=== PATIENT | female | born 1935 | race Caucasian/White ===

== ENCOUNTER 2017-09-30 21:29 | Emergency (ER) | payer MEDICARE ==
[~2017-09-30] VITALS: Ht 162.6 cm; Wt 50.0 kg
[~2017-09-30 21:29] MED LIST: AMLO10TA2 PO; HYDR25TA6 PO; MELO7.5T31 PO
[2017-09-30 22:13] LABS: BASOPHILS # (AUTO) 0.21 x10^3/uL (0-0.1); BASOPHILS % (AUTO) 1 % (0-1); EOSINOPHILS # (AUTO) 0.08 x10^3/uL (0-0.4); EOSINOPHILS % (AUTO) 1 % (1-7); LYMPHOCYTES # (AUTO) 1.38 x10^3/uL (1-3.4); LYMPHOCYTES % (AUTO) 9 % (22-44); MD NO; MEAN CORPUSCULAR HEMOGLOBIN 32.4 pg (27.0-34.8); MEAN CORPUSCULAR HGB CONC 33.8 g/dL (32.4-35.8); MEAN CORPUSCULAR VOLUME 95.8 fL (80-100); MEAN PLATELET VOLUME 6.8 fL (7.4-10.4); MONOCYTES # (AUTO) 0.92 x10^3/uL (0.2-0.8); MONOCYTES % (AUTO) 6 % (2-9); NEUTROPHILS % (AUTO) 83 % (42-75); PLATELET COUNT 416 x10^3/uL (130-400); RED BLOOD COUNT 3.89 x10^6/uL (3.82-5.3); RED CELL DISTRIBUTION WIDTH 14.1 % (9.6-15.2)
[2017-09-30 22:26] LABS: ALANINE AMINOTRANSFERASE 10 U/L (12-78); ALBUMIN 3.4 g/dL (3.4-5.0); ANION GAP 12 mmol/L (5-15); CHLORIDE 99 mmol/L (98-107); CREATININE 0.46 mg/dL (0.55-1.02)
[2017-09-30 22:28] LABS: ALKALINE PHOSPHATASE 103 U/L (45-117); BILIRUBIN,TOTAL 0.3 mg/dL (0.2-1.0); TOTAL PROTEIN 7.5 g/dL (6.4-8.2)
[2017-09-30] MEDS ORDERED: BACITRACIN ZINC OINT 500U/GM, 0.9 GM ONE (22:35)
[2017-09-30 22:47] LABS: MICROSCOPIC AUTO
[2017-09-30 22:48] LABS: CULTURE INDICATED? NO
[2017-10-01 02:18] VITALS: BP 97/58
== END 2017-10-01 02:23 | disposition home or self-care (01) ==
LOC: ED 23:30
DX: S51.011A Laceration without foreign body of right elbow, initial encounter (principal); F10.129 Alcohol abuse with intoxication, unspecified; I10 Essential (primary) hypertension; W18.39XA Other fall on same level, initial encounter; Y93.89 Activity, other specified; Y92.009 Unspecified place in unspecified non-institutional (private) residence as the place of occurrence of the external cause; Y99.8 Other external cause status; Y90.9 Presence of alcohol in blood, level not specified
CPT/HCPCS: 36415; 80053; 80307; 81001; 85025; 93005; 99285

== ENCOUNTER 2018-02-04 07:36 | Inpatient (IN) | payer MEDICARE ==
[~2018-02-04] VITALS: Ht 162.6 cm; Wt 47.2 kg
[2018-02-04] MEDS ORDERED: AMLO5TAB2 PO (08:10)
[2018-02-04 08:30] LABS: MEAN CORPUSCULAR HEMOGLOBIN 28.5 pg (27.0-34.8); MEAN CORPUSCULAR HGB CONC 33.2 g/dL (32.4-35.8); MEAN CORPUSCULAR VOLUME 85.8 fL (80-100); MEAN PLATELET VOLUME 6.9 fL (7.4-10.4); PLATELET COUNT 495 x10^3/uL (130-400); RED BLOOD COUNT 3.61 x10^6/uL (3.82-5.3)
[2018-02-04 08:34] LABS: INTERNATIONAL NORMALIZED RATIO 1.09 (0.93-1.1); PROTHROMBIN TIME 11.3 Seconds (9.6-11.5)
[2018-02-04 08:36] LABS: ALBUMIN 3.2 g/dL (3.4-5.0); ANION GAP 9 mmol/L (5-15); CALCIUM 9.2 mg/dL (8.5-10.1); CHLORIDE 99 mmol/L (98-107); CREATININE 0.35 mg/dL (0.55-1.02)
[2018-02-04 08:58] LABS: <PLATELET ESTIMATE> INCREASED; <PLT MORPHOLOGY> NORMAL PLT MORPH; BASOPHILS # (AUTO) 0.07 x10^3/uL (0-0.1); BASOPHILS % (AUTO) 0 % (0-1); EOSINOPHILS # (AUTO) 0.05 x10^3/uL (0-0.4); EOSINOPHILS % (AUTO) 0 % (1-7); LYMPHOCYTES # (AUTO) 0.93 x10^3/uL (1-3.4); LYMPHOCYTES % (AUTO) 5 % (22-44); MD MORPH REVIEW ONLY; MONOCYTES # (AUTO) 0.21 x10^3/uL (0.2-0.8); MONOCYTES % (AUTO) 1 % (2-9); NEUTROPHILS % (AUTO) 94 % (42-75); TOXIC GRAN 1+
[2018-02-04 08:59] LABS: ANISOCYTOSIS 1+
[2018-02-04 09:00] LABS: POLYCHROMASIA 1+
[2018-02-04] MEDS ORDERED: ONDANSETRON 2MG/ML, 2ML ONE (09:41)
[2018-02-04] MEDS ORDERED: MORPHINE SULFATE 4 MG/ML, 1ML ONE ×2 (09:41→11:38)
[2018-02-04] MEDS: MORPHINE SULFATE 4 MG/ML, 1ML IVPush PRN ×5 (09:44→23:00)
[2018-02-04 09:57] LABS: MICROSCOPIC INDICATED
[2018-02-04 09:59] LABS: CULTURE INDICATED? YES
[2018-02-04] MEDS ORDERED: ONDANSETRON 2MG/ML, 2ML IVPush ONE (10:00)
[2018-02-04] MEDS ORDERED: OMNIPAQUE 350 MG/ML, 100ML BOTTLE ONE (10:17)
[2018-02-04 13:23] VITALS: BP 126/77
[2018-02-04 14:30] VITALS: BP 139/86
[2018-02-04] MEDS ORDERED: ONDANSETRON ODT 4 MG PO PRN (15:30)
[2018-02-04] MEDS ORDERED: LABETALOL 5MG/ML, 20ML IVPush PRN (15:30)
[2018-02-04] MEDS ORDERED: ONDANSETRON 2MG/ML, 2ML IVPush PRN (15:30)
[2018-02-04] MEDS ORDERED: POLYETHYLENE GLYCOL 17 GM PACKET PO PRN (15:30)
[2018-02-04 15:59] LABS: FREE T4 (FREE THYROXINE) 1.09 ng/dL (0.76-1.46)
[2018-02-04] MEDS: D5%-0.45% NACL 1,000 ML IV SCH (16:24)
[2018-02-04 21:55] VITALS: BP 130/81
[2018-02-05 01:20] VITALS: BP 135/73
[2018-02-05] MEDS: MORPHINE SULFATE 4 MG/ML, 1ML IVPush PRN ×6 (02:10→20:57)
[2018-02-05] MEDS: D5%-0.45% NACL 1,000 ML IV SCH ×3 (02:11→23:08)
[2018-02-05 04:38] LABS: MEAN CORPUSCULAR HEMOGLOBIN 28.8 pg (27.0-34.8); MEAN CORPUSCULAR VOLUME 87.2 fL (80-100); PLATELET COUNT 460 x10^3/uL (130-400); RED BLOOD COUNT 3.38 x10^6/uL (3.82-5.3); RED CELL DISTRIBUTION WIDTH 15.5 % (9.6-15.2)
[2018-02-05 04:44] LABS: CHLORIDE 101 mmol/L (98-107)
[2018-02-05 04:45] LABS: ALBUMIN 2.6 g/dL (3.4-5.0); ANION GAP 7 mmol/L (5-15); CALCIUM 8.6 mg/dL (8.5-10.1)
[2018-02-05 04:56] LABS: ALANINE AMINOTRANSFERASE 10 U/L (12-78); ALKALINE PHOSPHATASE 103 U/L (45-117); BILIRUBIN,TOTAL 0.3 mg/dL (0.2-1.0); CREATININE 0.56 mg/dL (0.55-1.02); TOTAL PROTEIN 6.2 g/dL (6.4-8.2)
[2018-02-05 05:14] LABS: BASOPHILS # (AUTO) 0.04 x10^3/uL (0-0.1); BASOPHILS % (AUTO) 0 % (0-1); EOSINOPHILS # (AUTO) 0.09 x10^3/uL (0-0.4); EOSINOPHILS % (AUTO) 1 % (1-7); LYMPHOCYTES # (AUTO) 1.43 x10^3/uL (1-3.4); LYMPHOCYTES % (AUTO) 8 % (22-44); MD SCAN; MONOCYTES # (AUTO) 1.27 x10^3/uL (0.2-0.8); MONOCYTES % (AUTO) 7 % (2-9); NEUTROPHILS # (AUTO) 15.26 x10^3/uL (1.8-6.8); NEUTROPHILS % (AUTO) 84 % (42-75)
[2018-02-05] MEDS ORDERED: MAGNESIUM SULFATE PMX 2GM/50ML 50 ML IV ONE (06:00)
[2018-02-05] MEDS: CEFTRIAXONE PMX 2GM/50ML 50 ML IV SCH (06:27)
[2018-02-05 08:53] VITALS: BP 121/66
[2018-02-05] MEDS: SENNA/DOCUSATE TABLET PO SCH (10:19)
[2018-02-05] MEDS: AMLODIPINE 5 MG TABLET PO SCH (10:19)
[2018-02-05 10:30] VITALS: BP 109/74
[2018-02-05 13:14] VITALS: BP 123/70
[2018-02-05 18:56] VITALS: BP 132/74
[2018-02-06] MEDS: MORPHINE SULFATE 4 MG/ML, 1ML IVPush PRN ×4 (00:19→11:36)
[2018-02-06 01:29] VITALS: BP 113/61
[2018-02-06] MEDS: CEFTRIAXONE PMX 2GM/50ML 50 ML IV SCH (05:57)
[2018-02-06 08:22] VITALS: BP 131/77
[2018-02-06] MEDS: SENNA/DOCUSATE TABLET PO SCH (08:33)
[2018-02-06] MEDS: AMLODIPINE 5 MG TABLET PO SCH (08:34)
[2018-02-06] MEDS: D5%-0.45% NACL 1,000 ML IV SCH (08:38)
[2018-02-06 13:00] VITALS: BP 108/68
[2018-02-07] MEDS ORDERED: CEFD300C37 PO (06:38)
== END 2018-02-06 13:30 | disposition home or self-care (01) | DRG 543 ==
LOC: ED 11:38 → EDIP 11:39 → ED 12:00 → 3NW 12:34
PROVIDERS: ADMIT Internal Medicine; ATTEND Internal Medicine
DX: M84.451A Pathological fracture, right femur, initial encounter for fracture (principal); E87.1 Hypo-osmolality and hyponatremia; E44.0 Moderate protein-calorie malnutrition; I74.5 Embolism and thrombosis of iliac artery; N39.0 Urinary tract infection, site not specified; Z68.1 Body mass index [BMI] 19.9 or less, adult; D64.9 Anemia, unspecified; E11.9 Type 2 diabetes mellitus without complications; E83.42 Hypomagnesemia; I10 Essential (primary) hypertension; I48.91 Unspecified atrial fibrillation; W18.30XA Fall on same level, unspecified, initial encounter; M19.90 Unspecified osteoarthritis, unspecified site; R22.41 Localized swelling, mass and lump, right lower limb; Y93.89 Activity, other specified; Y92.000 Kitchen of unspecified non-institutional (private) residence as the place of occurrence of the external cause; Y99.8 Other external cause status; F17.210 Nicotine dependence, cigarettes, uncomplicated; Z85.41 Personal history of malignant neoplasm of cervix uteri; Z85.44 Personal history of malignant neoplasm of other female genital organs; Z90.710 Acquired absence of both cervix and uterus; Z96.649 Presence of unspecified artificial hip joint
CPT/HCPCS: 36415; 71045; 74177; 80048; 80053; 80307; 81001; 82040; 83605; 83735; 84100; 84145; 84439; 84443; 85025; 85610; 87040; 87086; 93005; 93922; 96374; 96375; 96376; J0696; J2405; Q9967; J3475